=== PATIENT | female | born 1985 | race Caucasian/White ===

== ENCOUNTER → 2019-03-09 13:57 | Outpatient (CLI) | payer MEDICAID, SELFPAY ==
--- NOTE | 2019-03-09 | US_ITS ---
PROCEDURE: MM DIG MAMM BI DX W/CAD with bilateral 3D tomography CLINICAL INDICATION: LT BREAST LUMP Bilateral breast lumps COMPARISON: US BREAST LT COMPLETE from 03/09/2019 US BREAST RT COMPLETE from 03/09/2019 TECHNIQUE: Standard CC and MLO images and 3D Tomosinthisis was obtained. R2 CAD reviewed. FINDINGS: There is average fibroglandular tissue bilaterally. Right breast: Spot-compression views performed of the area of palpable concern in the medial aspect of the right breast as well as a straight mL view. No malignant appearing mass or malignant-appearing microcalcification evident. Left breast: No malignant appearing mass or malignant-appearing microcalcification Right breast ultrasound: There is a 12 x 8 mm complex cyst at 12 o'clock and an additional 12 mm cyst which is complex appearing also at 12 o'clock. At 10 o'clock there is an additional complex cystic area at 7 mm. Left breast: No cyst or solid lesion evident. IMPRESSION: No malignant appearing mass or malignant-appearing microcalcification. There are 2 complex cysts of the right breast for which six-month follow-up is suggested. Any palpable nodule should be managed on a clinical basis despite negative mammogram and negative ultrasound BI-RAD Category: 3 Probably Benign Finding Short Term Follow-up FOLLOW-UP: 6M 6Month Follow-up (A letter has been sent to the patient regarding results of the study.) Dictated by: Abel Crow MD 03/18/2019 19:26 Electronically signed by Abel Crow MD in [facility] 03/18/2019 19:26
== END ==
PROVIDERS: PCP Nurse Practitioner Family; Visit Provider Nurse Practitioner Family
DX: N60.02 Solitary cyst of left breast (principal); N60.01 Solitary cyst of right breast; N92.6 Irregular menstruation, unspecified
CPT/HCPCS: 76641; 77062; 77066; G0279

== ENCOUNTER 2021-12-14 17:59 | Emergency (ER) | payer MEDICAID, SELFPAY ==
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
[2021-12-14 18:09] VITALS: BMI 27.3
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
--- NOTE | 2021-12-14 18:16 | HMH.ITSTN ---
spoke to FARHEEN Jimenes advised we need test on pt --
[2021-12-14 18:41] VITALS: BP 146/79; PULSE 109; RESP 16; TEMP 36.7; O2SAT 100
[2021-12-14 18:43] LABS: Chloride 104 mmol/L (98-107); Potassium 3.7 mmoL/L (3.5-5.1); Sodium 138 mmol/L (136-145)
[2021-12-14 18:45] LABS: Blood Urea Nitrogen 7 mg/dl (7-17); Creatinine Clearance Estimated 112 mL/min (50-200); Estimated Glomerular Filt Rate 70 ml/min (>60); GFR (African American) 85 ML/MIN (>60)
[2021-12-14 18:46] LABS: Alanine Aminotransferase 18 U/L (12-78); Albumin/Globulin Ratio 1.3 (1.1-1.8); Alkaline Phosphatase 102 U/L (38-126); Anion Gap 9.7 mEq/L (5-15); Aspartate Amino Transferase 34 U/L (14-36); Bilirubin,Total 0.3 mg/dl (0.2-1.3); Calcium 8.9 mg/dl (8.4-10.2); Carbon Dioxide 28 mmol/L (22.0-30.0); Globulin 3.1 g/dL (1.3-3.2); Glucose 96 mg/dl (74-100); Total Protein,Serum 7.1 g/dl (6.3-8.2)
[2021-12-14 18:48] LABS: Basophils # 0.1 K/mm3 (0-0.2); Basophils % 1.2 % (0.1-2.0); Eosinophils # 0.1 K/mm3 (0.0-0.4); Hematocrit 43.5 % (37.0-47.0); Hemoglobin 14.1 g/dL (12.2-16.2); Lymphocytes % 31.9 % (10-50); Mean Corpuscular HGB Conc 32.5 g/dL (31.8-35.4); Mean Corpuscular Hemoglobin 31.2 pg (27.0-31.2); Mean Corpuscular Volume 95.9 fl (81-99); Mean Platelet Volume 8.1 fl (7.4-10.4); Monocytes # 0.4 K/mm3 (0.1-1.0); Monocytes % 5.6 % (1.7-9.3); Neutrophils # 3.7 K/mm3 (1.8-7.8); Neutrophils % 59.3 % (37.0-80.0); Platelet Count 294 K/mm3 (142-424); Red Blood Count 4.54 M/mm3 (4.20-5.40); White Blood Count 6.3 K/mm3 (4.8-10.8)
[2021-12-14 18:49] LABS: HCG Qualitative, Serum Negative (Negative)
--- NOTE | 2021-12-14 19:15 | PC.NURSE ---
shift change report given to samantharn
[2021-12-14 19:31] VITALS: BP 134/72; PULSE 84; O2SAT 100
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
[2021-12-14 19:45] VITALS: BP 146/79; PULSE 109; RESP 16; TEMP 36.7; O2SAT 100; BMI 27.3
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
[2021-12-14 19:55] VITALS: BMI 27.3
[2021-12-14 20:00] VITALS: BP 109/62; PULSE 79; O2SAT 99
[2021-12-14 21:22] VITALS: BP 131/56; PULSE 75; RESP 14; TEMP 36.6; O2SAT 99
== END 2021-12-14 21:22 | disposition home or self-care (01) ==
PROVIDERS: Emergency Provider Emergency Medicine
DX: S39.012A Strain of muscle, fascia and tendon of lower back, initial encounter (principal); S16.1XXA Strain of muscle, fascia and tendon at neck level, initial encounter; S80.02XA Contusion of left knee, initial encounter; S06.0X0A Concussion without loss of consciousness, initial encounter; M25.522 Pain in left elbow; M25.521 Pain in right elbow; F41.9 Anxiety disorder, unspecified; Z88.5 Allergy status to narcotic agent; Z88.6 Allergy status to analgesic agent; V49.9XXA Car occupant (driver) (passenger) injured in unspecified traffic accident, initial encounter; Y92.410 Unspecified street and highway as the place of occurrence of the external cause
CPT/HCPCS: 31605; 70450; 71045; 72100; 72125; 72170; 72220; 73080; 73562; 80053; 84703; 85025; 99285

== ENCOUNTER → 2023-01-13 08:28 | Outpatient (CLI) | payer MEDICAID, SELFPAY ==
[2023-01-13 19:05] LABS: Basophils # 0.1 K/mm3 (0-0.2); Basophils % 0.5 % (0.1-2.0); Eosinophils # 0.1 K/mm3 (0.0-0.4); Eosinophils % 1.3 % (0.1-12.0); Hematocrit 45.6 % (37.0-47.0); Hemoglobin 15.1 g/dL (12.2-16.2); Lymphocytes # 2.6 K/mm3 (0.7-4.5); Lymphocytes % 28.8 % (10-50); Mean Corpuscular Hemoglobin 32.7 pg (27.0-31.2); Mean Corpuscular Volume 98.9 fl (81-99); Mean Platelet Volume 8.7 fl (7.4-10.4); Monocytes # 0.6 K/mm3 (0.1-1.0); Monocytes % 6.5 % (1.7-9.3); Neutrophils # 5.8 K/mm3 (1.8-7.8); Neutrophils % 62.9 % (37.0-80.0); Platelet Count 365 K/mm3 (142-424); Red Blood Count 4.61 M/mm3 (4.20-5.40); Red Cell Distribution Width 13.3 % (11.5-17.5); White Blood Count 9.2 K/mm3 (4.8-10.8)
[2023-01-13 20:11] LABS: Chloride 104 mmol/L (98-107); Potassium 3.8 mmoL/L (3.5-5.1); Sodium 136 mmol/L (136-145)
[2023-01-13 20:14] LABS: Alanine Aminotransferase 30 U/L (12-78); Albumin Level 4.7 g/dl (3.5-5.0); Albumin/Globulin Ratio 1.4 (1.1-1.8); Alkaline Phosphatase 109 U/L (38-126); Anion Gap 9.8 mEq/L (5-15); Aspartate Amino Transferase 37 U/L (14-36); Bilirubin,Total 0.5 mg/dl (0.2-1.3); Blood Urea Nitrogen 18 mg/dl (7-17); Carbon Dioxide 26 mmol/L (22.0-30.0); Estimated Glomerular Filt Rate 62 ml/min (>60); GFR (African American) 75 ML/MIN (>60); Globulin 3.4 g/dL (1.3-3.2); Total Protein,Serum 8.1 g/dl (6.3-8.2)
[2023-01-13 20:15] LABS: Calcium 9.1 mg/dl (8.4-10.2); Glucose 118 mg/dl (74-100)
[2023-01-13 20:45] LABS: Thyroid Stimulating Hormone 3.83 uIU/mL (0.465-4.68)
[2023-01-13 21:06] LABS: 25-OH Vitamin D, Total 22.8 ng/mL (30-100)
[2023-01-13 21:43] LABS: Vitamin B12 728 pg/mL (239-931)
[2023-01-15 11:12] LABS: HBsAg Screen Negative (Negative); HCV Ab Non Reactive (Non Reactive); HIV Screen 4th Generation wRfx Non Reactive (Non Reactive); Hep A Ab, IGM Negative (Negative); Hep B Core Ab, IgM Negative (Negative)
== END ==
PROVIDERS: PCP Emergency Medicine; Visit Provider Internal Medicine
DX: R53.83 Other fatigue (principal); E55.9 Vitamin D deficiency, unspecified; Z68.29 Body mass index [BMI] 29.0-29.9, adult
CPT/HCPCS: 80053; 80074; 82306; 82607; 84443; 85025; 86703; G0432

== ENCOUNTER 2023-06-21 00:59 | Emergency (ER) | payer MEDICAID, SELFPAY ==
[2023-06-21] VITALS (8 sets, daily range): BP systolic 139–169; BP diastolic 82–101; PULSE 79–105; RESP 15–20; TEMP 36.5–36.6; O2SAT 99–100; BMI 29.5
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
--- NOTE | 2023-06-21 01:45 | [facility].EDGENADL ---
Discharge Plan Disposition Patient Disposition: Home, Self-Care Condition: Good Prescriptions Prescriptions: No Action buprenorphine-naloxone 8-2 mg tablet, sublingual 1 tab sublingual venlafaxine 150 mg capsule,extended release 24hr 150 mg PO DAILY Qty: 30 2RF quetiapine [Seroquel] 25 mg tablet 25 mg PO DAILY Qty: 30 2RF tizanidine 4 mg capsule 4 mg PO HS PRN (Reason: muscle spasticity) Qty: 30 2RF cholecalciferol (vitamin D3) 25 mcg (1,000 unit) capsule 25 mcg PO DAILY 90 Days Qty: 90 2RF Referrals Follow up/Referrals: Provider,Referral, [Primary Care Provider] - See instructions Activity Restrictions/Add. Instructions Additional Instructions/Restrictions: You were evaluated in the emergency department today. At this time, we think that your symptoms are related to cellulitis. You were given a dose of antibiotics here in the emergency department. You should not need other antibiotics. Please follow-up closely with your primary care provider after 3 days for reassessment. Return to the emergency department for new or worsening symptoms, such as significant worsening in redness, warmth, swelling, or fever. Take Tylenol and ibuprofen at home as needed for pain. Keep your legs elevated to reduce swelling. Clinical Impressions Clinical Impression: Cellulitis of left lower extremity Instructions Patient Instructions: DI for Cellulitis -- Adult Discharge ED Provider: Loraine Sotomayor General Adult HPI General Chief complaint: PAIN Stated complaint: left foot pain, redness, swelling in both feet Time Seen by Provider: 06/21/23 01:24 Mode of Arrival: Ambulatory Source of Information: Patient Limitations: No Limitations Description of Symptoms (Recalled from ER Triage Doc. by RN): patient ambulatory to ED with complaints of BLE swelling. Reports that left foot started swelling on , with numbness and tingling present. Today she noticed the right leg beginning to swell, and become painful. Reports SOA with exertion. History of Present Illness HPI narrative: This patient is a 37-year-old female with a history of substance use disorder currently on Suboxone, PTSD, anxiety, and DVT, which she states was unprovoked but she is not on anticoagulation presenting to the emergency department for evaluation with concern for bilateral lower extremity swelling, left greater than right. Patient reports that she first noticed it in the left lower extremity 2 days ago and felt some paresthesias distally in her left foot. She states that she has had redness and warmth extending up into her left calf that she noticed today. She is also having some swelling as starting in her right lower extremity as well. She notes she is having dyspnea and orthopnea as well. No fevers, chills, chest pain, abdominal pain, vomiting, or other concerns. No recent traumatic injury. She denies any recent history of IV drug use. Related Data Home Medications Medication Instructions Recorded Confirmed buprenorphine 8 mg-naloxone 2 mg 1 tab sublingual 01/13/23 01/13/23 sublingual tablet Previous Rx's Medication Instructions Recorded quetiapine 25 mg tablet (Seroquel) 25 mg PO DAILY #30 tabs 01/13/23 tizanidine 4 mg capsule 4 mg PO HS PRN muscle spasticity 01/13/23 #30 caps venlafaxine 150 mg 150 mg PO DAILY #30 caps 01/13/23 capsule,extended release 24 hr cholecalciferol (vitamin D3) 25 25 mcg PO DAILY 90 days #90 caps 01/19/23 mcg (1,000 unit) capsule Allergies Allergy/AdvReac Type Severity Reaction Status Date / Time cephalexin [From Keflex] Allergy Verified 01/13/23 14:42 morphine Allergy Verified 01/13/23 14:42 [facility] Disclaimer: The information contained in this section may have been updated after the patient was seen, as this information can be updated by other users. Medical History Thyroid disease Anxiety and depression PTSD (post-traumatic stress disorder) Anxiety Surgical History History of Hx of cholecystectomy Social History Smoking Status: Current every day smoker tobacco type: cigarettes alcohol intake: current alcohol intake frequency: a few times a month substance use type: painkillers current occupational status: employed Travel in the last 8 weeks: None ROS Obtained: Yes All systems reviewed & no additional complaints except as documented Physical Exam General General appearance: alert and in no apparent distress Head Head exam: atraumatic and normocephalic Eye Eye exam: Present normal appearance, PERRL and EOMI ENT ENT exam: Present normal exam, normal oropharynx, mucous membranes moist and normal external ear exam Neck Neck exam: Present normal inspection, full ROM and trachea midline; Absent tenderness Chest Chest inspection: Present normal inspection and symmetric chest wall rise; Absent tenderness Respiratory Respiratory exam: Present normal lung sounds bilaterally; Absent respiratory distress, wheezes, stridor or accessory muscle use Cardiovascular Cardiovascular exam: Present regular rate and normal rhythm Abdominal Exam Abdominal exam: Present soft; Absent distention, tenderness or guarding Extremities Exam Extremities exam: Present full ROM, normal capillary refill and edema (Left greater than right lower extremity pitting edema. Left calf erythema, redness, and warmth extending into the foot. Neurovascularly intact distally in both lower extremities. No large open wounds.); Absent tenderness Back Exam Back exam: Present normal inspection and full ROM; Absent tenderness Neurological Exam Neurological exam: Present alert, oriented X3, CN II-XII intact and normal gait; Absent motor sensory deficit Psychiatric Psychiatric exam: Present normal affect and normal mood Skin Skin exam: Present warm and dry Medical Decision Making Medical Records Medical records reviewed: Yes I reviewed the patient's medical records. Jah Inquiry Pt receiving controlled substance: No Vital Signs: 06/21/23 01:01 06/21/23 01:15 06/21/23 01:30 Temperature 97.7 F Temperature Source Oral Pulse Rate 87 91 H Pulse Rate [Right] 105 H Respiratory Rate 16 18 20 Blood Pressure 139/89 146/92 H Blood Pressure [Right Arm] 139/89 Blood Pressure Mean [Right Arm] 105 Blood Pressure Source Blood Pressure Source [Right Arm] Automatic Cuff Blood Pressure Position Blood Pressure Position [Right Arm] Sitting 02 Sat by Pulse Oximetry 100 100 100 Oxygen Delivery Method Room Air Room Air Room Air 06/21/23 02:00 06/21/23 02:30 06/21/23 03:00 Temperature Temperature Source Pulse Rate 95 H 87 87 Pulse Rate [Right] Respiratory Rate 16 18 20 Blood Pressure 159/82 H 160/96 H 169/98 H Blood Pressure [Right Arm] Blood Pressure Mean [Right Arm] Blood Pressure Source Blood Pressure Source [Right Arm] Blood Pressure Position Blood Pressure Position [Right Arm] 02 Sat by Pulse Oximetry 100 100 99 Oxygen Delivery Method Room Air Room Air Room Air 06/21/23 03:30 06/21/23 04:50 Temperature 97.9 F Temperature Source Oral Pulse Rate 79 84 Pulse Rate [Right] Respiratory Rate 18 15 Blood Pressure 151/101 H 149/95 H Blood Pressure [Right Arm] Blood Pressure Mean [Right Arm] Blood Pressure Source Automatic Cuff Blood Pressure Source [Right Arm] Blood Pressure Position Sitting Blood Pressure Position [Right Arm] 02 Sat by Pulse Oximetry 100 Oxygen Delivery Method Room Air Room Air Lab Data Lab results reviewed: Yes I reviewed the patient's lab results. Lab Results 06/21/23 02:30: WBC 5.9, RBC 3.83 L, Hgb 12.3, Hct 38.1, MCV 99.2 H, MCH 32.1 H, MCHC 32.4, RDW 13.9, Plt Count 272, MPV 7.6, Neut % (Auto) 56.2, Lymph % (Auto) 33.2, Wetzel % (Auto) 7.3, Eos % (Auto) 1.8, Baso % (Auto) 1.4, Neut # (Auto) 3.3, Lymph # (Auto) 2.0, Wetzel # (Auto) 0.4, Eos # (Auto) 0.1, Baso # (Auto) 0.1, ESR 31 H, PT 10.1, INR 0.93, APTT 27.6, D-Dimer 0.54 H, Sodium 138, Potassium 3.7, Chloride 109 H, Carbon Dioxide 29, Anion Gap 3.7 L, BUN 16, Creatinine 1.00, Estimated Creat Clear 108, Estimated GFR 62, Est GFR ( Amer) 75, Glucose 87, Lactate 0.9, Calcium 9.0, Total Bilirubin 0.4, AST 45 H, ALT 38, Alkaline Phosphatase 90, Total Creatine Kinase 115, C-Reactive Protein 16.6 H, NT-Pro-B Natriuret Pep 89.7, Total Protein 6.5, Albumin 3.5, Globulin 3.0, Albumin/Globulin Ratio 1.2, TSH 2.92, Thyroxine (T4) 7.2, Serum HCG, Qual Negative 06/21/23 02:30 06/21/23 02:30 Orders (Tests/Meds): ED MEDICATIONS Discontinued Medications Generic Name Dose Route Start Last Admin Trade Name Freq PRN Reason Stop Dose Admin Dalbavancin 1,500 mg/ Dextrose 250 mls @ 500 mls/hr 06/21/23 03:20 06/21/23 03:54 IV 06/21/23 03:21 500 mls/hr ONCE ONE Administration ORDERS Category Date Time Status POCUS Point of Care (ER Only) Stat Exams 06/21/23 01:30 Completed XR chest portable Stat Exams 06/21/23 01:30 Completed Activated Partial Thrombo Time Stat Lab 06/21/23 02:30 Completed C-Reactive Protein Stat Lab 06/21/23 02:30 Completed CK [Creatine Kinase] Stat Lab 06/21/23 02:30 Completed Complete Blood Count Auto Diff Stat Lab 06/21/23 02:30 Completed Comprehensive Metabolic Panel Stat Lab 06/21/23 02:30 Completed D-Dimer Stat Lab 06/21/23 02:30 Completed Erythrocyte Sedimentation Rate Stat Lab 06/21/23 02:30 Completed HCG Qualitative, Serum Stat Lab 06/21/23 02:30 Completed Lactic Acid Stat Lab 06/21/23 02:30 Completed NT Pro Brain Natriuretic Pep. Stat Lab 06/21/23 02:30 Completed Prothrombin Time INR Stat Lab 06/21/23 02:30 Completed T4 (Thyroxine) Stat Lab 06/21/23 02:30 Completed TSH [Thyroid Stimulating Hormone] Stat Lab 06/21/23 02:30 Completed ECG Data Tracing #1: I reviewed this ECG and interpreted as documented below: Normal sinus rhythm with a ventricular rate of [address] changes concerning for ischemia. Normal axis and intervals. ECG initial impression date: 06/21/23 ECG initial impression time: 02:16 Medical Decision Narrative: In summary, this patient is a 37-year-old female presenting to the Emergency Department for evaluation of bilateral lower extremity swelling, left greater than right. Differential diagnoses considered include but are not limited to DVT, cellulitis, CHF, thyroid dysfunction. Ruling out the most morbid conditions drove assessment. On exam, the patient is well-appearing. She has left greater than right lower extremity swelling with redness and warmth to her left calf. She does have good pulses distally in her bilateral lower extremities as well as good capillary refill and sensation. Workup included CBC, CMP, ESR, CRP, D-dimer, lactic acid, CK, BNP, test, PT, PTT, TSH, T4, chest x-ray, EKG, and [id number] ultrasound of the lower extremities. I independently interpreted straight prior to the radiologist read and noted acute focal consolidation or pneumothorax. Please see their read for final interpretation. Labs were obtained that demonstrated elevated inflammatory markers but normal white blood cell count. D-dimer is 0.54, however this is an acute phase reactant which I feel is just slightly at the upper limits of normal in the setting of clinical cellulitis. DVT US is negative, and patient is without chest pain, tachycardia, or hypoxia. After shared decision-making with the patient, bedside DVT ultrasound was performed which did not demonstrate any acute blood clot. Given this, shared decision-making was had and decision was made to treat as cellulitis with IV Dalvance. On reassessment, the patient is resting comfortably with reassuring vital signs. I do feel that she is appropriate for discharge with instructions for supportive management of cellulitis. Dalvance given prior to discharge. I gave her very strict return precautions and instructions for close follow-up with her primary care provider. Patient was discharged after all questions were answered. Procedures Limited Ultrasound Findings:: Limited DVT ultrasound Indication: Limited compression ultrasonography of the bilateral lower extremity was performed to evaluate for non-compressibility of the deep veins in the patient. The ultrasound was performed with the following indications, as noted in the H&P: Bilateral leg pain and swelling Identified structures: Bilateral [common femoral vein, femoral vein, popliteal vein were examined.] Findings: Lower Extremity: Right CFV: Good compressibility Right FV: Compressibility Right Popliteal vein: Good compressibility Left CFV: Good compressibility Left FV: Good compressibility Left Popliteal vein: Good compressibility Impression: Normal bilateral lower extremity DVT ultrasound Images were saved to permanent archive The study was technically adequate CPT: 93207-10 (complete bilateral study) This study was performed by me, and I personally interpreted all images/videos. Based on my clinical judgement, these images were adequate and not necessitate further imaging. Critical Care Critical Care Time Critical Care Time: No
--- NOTE | 2023-06-21 01:49 | ECG_ITS ---
APPROVED REPORT Exam: Resting ECG HR:81 bpm ECG Measurements Heart Rate 81 AXES KS 168 P 70 QRSd 90 QRS 73 QT 361 T 59 QTc 398 Conclusion SINUS RHYTHM POSSIBLE LEFT ATRIAL ENLARGEMENT [-0.1mV P-WAVE IN V1/V2] BORDERLINE ECG Electronically signed by : ANTONIO CHURCHILL, 06/21/2023 07:18:16
[2023-06-21 02:40] LABS: Basophils # 0.1 K/mm3 (0-0.2); Basophils % 1.4 % (0.1-2.0); Eosinophils # 0.1 K/mm3 (0.0-0.4); Eosinophils % 1.8 % (0.1-12.0); Hematocrit 38.1 % (37.0-47.0); Hemoglobin 12.3 g/dL (12.2-16.2); Lymphocytes % 33.2 % (10-50); Mean Corpuscular HGB Conc 32.4 g/dL (31.8-35.4); Mean Corpuscular Hemoglobin 32.1 pg (27.0-31.2); Mean Corpuscular Volume 99.2 fl (81-99); Mean Platelet Volume 7.6 fl (7.4-10.4); Monocytes # 0.4 K/mm3 (0.1-1.0); Monocytes % 7.3 % (1.7-9.3); Neutrophils # 3.3 K/mm3 (1.8-7.8); Neutrophils % 56.2 % (37.0-80.0); Platelet Count 272 K/mm3 (142-424); Red Blood Count 3.83 M/mm3 (4.20-5.40); Red Cell Distribution Width 13.9 % (11.5-17.5); White Blood Count 5.9 K/mm3 (4.8-10.8)
[2023-06-21 02:52] LABS: Chloride 109 mmol/L (98-107); HCG Qualitative, Serum Negative (Negative); Sodium 138 mmol/L (136-145)
[2023-06-21 02:53] LABS: Activated Partial Thrombo Time 27.6 seconds (22.8-30.6); INR 0.93 (0.9-1.1); Lactic Acid 0.9 mmol/L (0.7-2.1); Potassium 3.7 mmoL/L (3.5-5.1); Prothrombin Time 10.1 seconds (10.1-12.5)
[2023-06-21 02:55] LABS: Alanine Aminotransferase 38 U/L (12-78); Albumin Level 3.5 g/dl (3.5-5.0); Albumin/Globulin Ratio 1.2 (1.1-1.8); Alkaline Phosphatase 90 U/L (38-126); Anion Gap 3.7 mEq/L (5-15); Aspartate Amino Transferase 45 U/L (14-36); Bilirubin,Total 0.4 mg/dl (0.2-1.3); Blood Urea Nitrogen 16 mg/dl (7-17); Carbon Dioxide 29 mmol/L (22.0-30.0); Creatine Kinase 115 U/L (30-135); Creatinine Clearance Estimated 108 mL/min (50-200); Estimated Glomerular Filt Rate 62 ml/min (>60); GFR (African American) 75 ML/MIN (>60); Glucose 87 mg/dl (74-100); Total Protein,Serum 6.5 g/dl (6.3-8.2)
[2023-06-21 03:01] LABS: C-Reactive Protein 16.6 mg/L (0-4); D-Dimer 0.54 ug/mL (0.0-0.5)
[2023-06-21 03:04] LABS: NT Pro Brain Natriuretic Pep. 89.7 pg/mL (0-125)
[2023-06-21 03:10] LABS: Erythrocyte Sedimentation Rate 31 mm/hr (0-20)
[2023-06-21 03:11] LABS: T4 (Thyroxine) 7.2 ug/dl (5.53-11.0)
[2023-06-21 03:25] LABS: Thyroid Stimulating Hormone 2.92 uIU/mL (0.465-4.68)
[2023-06-21] MEDS: DALBAVANCIN HCL 1,500 MG in DEXTROSE 5 % IN WATER 250 ML 500 MG IV (03:54)
== END 2023-06-21 04:55 | disposition home or self-care (01) ==
PROVIDERS: Emergency Provider Emergency Medicine
DX: L03.116 Cellulitis of left lower limb (principal); R60.0 Localized edema
CPT/HCPCS: 71045; 80053; 82550; 83605; 83880; 84436; 84443; 84703; 85025; 85378; 85610; 85651; 85730; 86140; 93005; 96374; 99285; J0875